=== PATIENT | male | born 1950 | race Caucasian/White ===

== ENCOUNTER 2018-02-06 00:54 | Emergency (ER) | payer OTHER ==
[~2018-02-06] VITALS: Ht 182.9 cm; Wt 93.8 kg
[2018-02-06 00:55] VITALS: BP 148/94
[2018-02-06] MEDS ORDERED: AMOXICILLIN/CLAV 875-125MG TABLET ONE (01:24)
[2018-02-06] MEDS ORDERED: CARV12.543 PO (01:30)
[2018-02-06] MEDS ORDERED: ALLO100T30 PO (01:30)
[2018-02-06] MEDS ORDERED: CLON2TAB9 PO (01:30)
[2018-02-06] MEDS ORDERED: THYR120T PO (01:30)
[2018-02-06] MEDS ORDERED: AMOXICILLIN/CLAV 875-125MG TABLET PO ONE (01:30)
[2018-02-06] MEDS ORDERED: POTA10TA5 PO (01:30)
[2018-02-06] MEDS ORDERED: AMINO ACID IV (01:40)
[2018-02-06] MEDS ORDERED: MELA1TAB6 PO (01:40)
[2018-02-06] MEDS ORDERED: [UNRECOGNIZED DRUG - OTHER] IV (01:40)
[2018-02-06] MEDS ORDERED: [UNRECOGNIZED DRUG - CODE] SC (01:40)
== END 2018-02-06 02:30 | disposition home or self-care (01) ==
LOC: ED 02:00
DX: S90.571A Other superficial bite of ankle, right ankle, initial encounter (principal); I10 Essential (primary) hypertension; Z88.0 Allergy status to penicillin; Z88.2 Allergy status to sulfonamides; Z88.8 Allergy status to other drugs, medicaments and biological substances; Z87.891 Personal history of nicotine dependence; W55.01XA Bitten by cat, initial encounter; Y93.89 Activity, other specified; Y92.410 Unspecified street and highway as the place of occurrence of the external cause; Y99.8 Other external cause status
CPT/HCPCS: 99284

== ENCOUNTER 2020-01-26 07:33 | Observation (INO) | payer OTHER ==
[~2020-01-26] VITALS: Ht 182.9 cm; Wt 88.0 kg
[~2020-01-26 07:33] MED LIST: ALLO100T30 PO; AMINO ACID IV; CARV12.543 PO; CLON2TAB9 PO; MELA1TAB6 PO; POTA10TA5 PO; THYR120T PO; [UNRECOGNIZED DRUG - CODE] SC; [UNRECOGNIZED DRUG - OTHER] IV
[2020-01-26 08:36] LABS: MICROSCOPIC AUTO
[2020-01-26 09:19] LABS: BASOPHILS # (AUTO) 0.02 x10^3/uL (0-0.1); BASOPHILS % (AUTO) 0 % (0-1); EOSINOPHILS # (AUTO) 0.15 x10^3/uL (0-0.4); EOSINOPHILS % (AUTO) 3 % (1-7); LYMPHOCYTES # (AUTO) 0.79 x10^3/uL (1-3.4); LYMPHOCYTES % (AUTO) 15 % (22-44); MD NO; MEAN CORPUSCULAR HEMOGLOBIN 31.7 pg (27.5-34.5); MEAN CORPUSCULAR VOLUME 96.2 fL (81-97); MEAN PLATELET VOLUME 7.1 fL (7.4-10.4); MONOCYTES # (AUTO) 0.51 x10^3/uL (0.2-0.8); MONOCYTES % (AUTO) 10 % (2-9); NEUTROPHILS # (AUTO) 3.77 x10^3/uL (1.8-6.8); NEUTROPHILS % (AUTO) 72 % (42-75); PLATELET COUNT 182 x10^3/uL (130-400); RED BLOOD COUNT 4.53 x10^6/uL (4.38-5.82); RED CELL DISTRIBUTION WIDTH 14.5 % (9.4-14.8)
[2020-01-26 09:31] LABS: ALBUMIN 3.5 g/dL (3.4-5.0); ANION GAP 1 mmol/L (5-15); CALCIUM 8.8 mg/dL (8.5-10.1); CHLORIDE 110 mmol/L (98-107)
[2020-01-26 09:36] LABS: ALANINE AMINOTRANSFERASE 29 U/L (12-78); ALKALINE PHOSPHATASE 74 U/L (45-117); CREATININE 0.82 mg/dL (0.7-1.3); TOTAL PROTEIN 6.7 g/dL (6.4-8.2)
[2020-01-26] MEDS ORDERED: CEFTRIAXONE PMX 1GM/50ML 50 ML ONE (10:14)
[2020-01-26] MEDS ORDERED: CEFTRIAXONE PMX 1GM/50ML 50 ML IV ONE (10:30)
[2020-01-26] MEDS ORDERED: ONDANSETRON 2MG/ML, 2ML IVPush PRN ×2 (11:30→18:00)
[2020-01-26] MEDS ORDERED: ACETAMINOPHEN 325 MG TABLET PO PRN (11:30)
[2020-01-26 12:25] VITALS: BP 134/86
[2020-01-26] MEDS ORDERED: FENTANYL PF 250 MCG/5ML ONE (17:21)
[2020-01-26] MEDS ORDERED: MIDAZOLAM 1 MG/ML, 2ML ONE (17:21)
[2020-01-26] MEDS ORDERED: PROPOFOL 10 MG/ML, 20ML ONE (17:26)
[2020-01-26] MEDS ORDERED: ROCURONIUM 10MG/ML,5ML ONE (17:26)
[2020-01-26] MEDS ORDERED: SUCCINYLCHOLINE 20 MG/ML, 10ML ONE (17:26)
[2020-01-26] MEDS ORDERED: ONDANSETRON 2MG/ML, 2ML ONE (17:32)
[2020-01-26] MEDS ORDERED: DEXAMETHASONE 4 MG/ML, 1ML ONE (17:32)
[2020-01-26] MEDS ORDERED: HYDROmorphone 1 MG/ML, 1ML INJ IVPush PRN (18:00)
[2020-01-26] MEDS ORDERED: DIAZEPAM 5 MG/ML, 2ML IVPush PRN (18:00)
[2020-01-26] MEDS ORDERED: PROMETHAZINE 12.5 MG SUPP PR PRN (18:00)
[2020-01-26] MEDS ORDERED: MEPERIDINE/PF 25MG/0.5ML IVPush PRN (18:00)
[2020-01-26] MEDS ORDERED: DIPHENHYDRAMINE 50 MG/ML, 1ML IVPush PRN (18:00)
[2020-01-26] MEDS ORDERED: PROMETHAZINE 25 MG/ML, 1ML IVPush PRN (18:00)
[2020-01-26] MEDS ORDERED: MIDAZOLAM 1 MG/ML, 2ML IV PRN (18:00)
[2020-01-26] MEDS ORDERED: OXYcodone 5 MG/5 ML ORAL.SOL UDC PO PRN (18:00)
[2020-01-26] MEDS ORDERED: ALBUTEROL SULFATE 2.5 MG/3 ML NPPB PRN (18:00)
[2020-01-26] MEDS ORDERED: EPHEDRINE 50 MG/ML, 1ML IVPush PRN (18:00)
[2020-01-26] MEDS ORDERED: FENTANYL PF 100 MCG/2ML IV PRN (18:00)
[2020-01-26] MEDS ORDERED: hydrALAzine 20 MG/ML, 1ML IV PRN (18:00)
[2020-01-26] MEDS ORDERED: LABETALOL 5MG/ML, 20ML IV PRN (18:00)
[2020-01-26] MEDS ORDERED: OXYcodone 5 MG/5 ML ORAL.SOL UDC ONE (19:28)
[2020-01-26 20:00] VITALS: BP 151/94
[2020-01-26] MEDS ORDERED: TEMPLATE NON-FORMULARY MED. (Melatonin** 1 MG) PO SCH (21:00)
[2020-01-26] MEDS ORDERED: POLYETHYLENE GLYCOL 17 GM PACKET PO PRN (21:30)
[2020-01-26] MEDS ORDERED: SENNA/DOCUSATE TABLET PO PRN (21:30)
[2020-01-26] MEDS ORDERED: BISACODYL 10 MG SUPP PR PRN (21:30)
[2020-01-26] MEDS: THYROID 30 MG TABLET PO SCH (21:41)
[2020-01-26] MEDS: CARVEDILOL 12.5 MG TABLET PO SCH (21:42)
[2020-01-26] MEDS: HYDROcodone/APAP 5/325 TABLET PO PRN (23:29)
[2020-01-27] MEDS: HYDROcodone/APAP 5/325 TABLET PO PRN ×2 (00:02→04:05)
[2020-01-27 00:28] VITALS: BP 129/79
[2020-01-27 04:28] VITALS: BP 109/68
[2020-01-27 05:36] LABS: CHLORIDE 106 mmol/L (98-107)
[2020-01-27 05:41] LABS: BASOPHILS % (AUTO) 0 % (0-1); EOSINOPHILS % (AUTO) 0 % (1-7); LYMPHOCYTES # (AUTO) 0.43 x10^3/uL (1-3.4); LYMPHOCYTES % (AUTO) 6 % (22-44); MD NO; MEAN CORPUSCULAR HEMOGLOBIN 31.8 pg (27.5-34.5); MEAN CORPUSCULAR HGB CONC 33.3 g/dL (33.2-36.2); MEAN CORPUSCULAR VOLUME 95.5 fL (81-97); MEAN PLATELET VOLUME 7.7 fL (7.4-10.4); MONOCYTES # (AUTO) 0.07 x10^3/uL (0.2-0.8); MONOCYTES % (AUTO) 1 % (2-9); NEUTROPHILS # (AUTO) 6.83 x10^3/uL (1.8-6.8); NEUTROPHILS % (AUTO) 93 % (42-75); PLATELET COUNT 176 x10^3/uL (130-400); RED CELL DISTRIBUTION WIDTH 14.7 % (9.4-14.8)
[2020-01-27 05:47] LABS: ALANINE AMINOTRANSFERASE 32 U/L (12-78); ALBUMIN 3.6 g/dL (3.4-5.0); ALKALINE PHOSPHATASE 82 U/L (45-117); ANION GAP 9 mmol/L (5-15); BILIRUBIN,TOTAL 0.9 mg/dL (0.2-1.0); CALCIUM 8.9 mg/dL (8.5-10.1); CREATININE 1.06 mg/dL (0.7-1.3); TOTAL PROTEIN 7.2 g/dL (6.4-8.2)
[2020-01-27 07:07] VITALS: BP 113/69
[2020-01-27] MEDS: THYROID 30 MG TABLET PO SCH (08:10)
[2020-01-27] MEDS: CARVEDILOL 12.5 MG TABLET PO SCH (08:11)
[2020-01-27] MEDS ORDERED: ALLOPURINOL 300 MG TABLET PO SCH (09:00)
[2020-01-27] MEDS ORDERED: CALCIUM CARBONATE 500 MG TAB.CHEW PO PRN (12:30)
[2020-01-27 13:44] VITALS: BP 118/66
[2020-01-27 14:51] VITALS: BP 111/70
== END 2020-01-27 16:01 | disposition home or self-care (01) ==
LOC: ED 08:30 → EDIP 10:15 → INTOOBSV 10:15 → 4NE 12:15
PROVIDERS: ADMIT Internal Medicine; ATTEND Internal Medicine
DX: Z03.818 Encounter for observation for suspected exposure to other biological agents ruled out (principal); N13.2 Hydronephrosis with renal and ureteral calculous obstruction; R53.82 Chronic fatigue, unspecified; I10 Essential (primary) hypertension; E03.9 Hypothyroidism, unspecified; E16.2 Hypoglycemia, unspecified; D80.1 Nonfamilial hypogammaglobulinemia; M10.9 Gout, unspecified; G47.33 Obstructive sleep apnea (adult) (pediatric); Z79.899 Other long term (current) drug therapy; Z87.442 Personal history of urinary calculi; Z86.61 Personal history of infections of the central nervous system; Z87.891 Personal history of nicotine dependence; Z88.0 Allergy status to penicillin
CPT/HCPCS: 36415; 52356; 74018; 74176; 76000; 80053; 81001; 85025; 87086; 87635; 93005; 96365; 99285; C1769; C2617; G0378; J0330; J0696; J1100; J2250; J2405; J2704; J3010

== ENCOUNTER 2020-02-13 08:47 | Emergency (ER) | payer OTHER ==
[~2020-02-13] VITALS: Ht 182.9 cm; Wt 90.9 kg
--- NOTE | 2020-02-13 09:15 | NUR ---
[employer] Medical student bedside.
[2020-02-13] MEDS ORDERED: MORPHINE SULFATE 4 MG/ML, 1ML IVPush PRN (09:30)
[2020-02-13] MEDS ORDERED: SODIUM CHLORIDE FLUSH 10ML SYR IVF ONE (09:30)
[2020-02-13] MEDS ORDERED: ONDANSETRON 2MG/ML, 2ML IVPush ONE (09:30)
[2020-02-13] MEDS ORDERED: MORPHINE SULFATE 4 MG/ML, 1ML ONE (09:45)
[2020-02-13] MEDS ORDERED: ONDANSETRON 2MG/ML, 2ML ONE (09:45)
[2020-02-13 09:48] LABS: BASOPHILS % (AUTO) 0 % (0-1); EOSINOPHILS # (AUTO) 0.03 x10^3/uL (0-0.4); EOSINOPHILS % (AUTO) 1 % (1-7); LYMPHOCYTES # (AUTO) 0.45 x10^3/uL (1-3.4); LYMPHOCYTES % (AUTO) 7 % (22-44); MD NO; MEAN CORPUSCULAR HEMOGLOBIN 31.4 pg (27.5-34.5); MEAN CORPUSCULAR HGB CONC 32.7 g/dL (33.2-36.2); MEAN CORPUSCULAR VOLUME 95.8 fL (81-97); MEAN PLATELET VOLUME 6.9 fL (7.4-10.4); MONOCYTES % (AUTO) 4 % (2-9); NEUTROPHILS % (AUTO) 89 % (42-75); PLATELET COUNT 176 x10^3/uL (130-400); RED CELL DISTRIBUTION WIDTH 14.5 % (9.4-14.8)
[2020-02-13 09:50] LABS: ALANINE AMINOTRANSFERASE 35 U/L (12-78); ANION GAP 4 mmol/L (5-15); CALCIUM 9.1 mg/dL (8.5-10.1); CHLORIDE 110 mmol/L (98-107); CREATININE 1.24 mg/dL (0.7-1.3)
[2020-02-13 09:52] LABS: ALKALINE PHOSPHATASE 76 U/L (45-117); BILIRUBIN,TOTAL 1.2 mg/dL (0.2-1.0); TOTAL PROTEIN 7.4 g/dL (6.4-8.2)
--- NOTE | 2020-02-13 09:59 | NUR ---
Pt in [facility]. [employer] student bedside with RN administering medication per SEP. No needs expressed by pt at this time. Will continue to monitor.
--- NOTE | 2020-02-13 10:08 | NUR ---
Pt resting in gurney, no needs expressed, pain level 5/10 post medication administration per MAR. Pt passed kidney stone in urine cup. Will continue to monitor.
[2020-02-13 10:12] LABS: MICROSCOPIC AUTO
[2020-02-13 11:13] VITALS: BP 122/77
--- NOTE | 2020-02-13 11:14 | NUR ---
Patient/Caregiver given discharge instructions and they have confirmed that they understand the instructions. Patient ambulatory with steady gait. Pt verbalized d/c instructions and is calling a ride for transportation home.
== END 2020-02-13 11:34 | disposition home or self-care (01) ==
LOC: ED 10:21
DX: N20.0 Calculus of kidney (principal); N23 Unspecified renal colic; R30.0 Dysuria; R11.2 Nausea with vomiting, unspecified; I49.3 Ventricular premature depolarization; I10 Essential (primary) hypertension; Z90.89 Acquired absence of other organs
CPT/HCPCS: 36415; 80053; 81001; 83690; 85025; 93005; 96374; 96375; 99284; J2270; J2405